=== PATIENT | female | born 1940 | race Caucasian/White ===

== ENCOUNTER 2017-03-13 10:01 | Inpatient (IN) | payer MEDICARE, BC ==
[2017-03-13] MEDS ORDERED: Sodium Chloride 0.9% 1,000 ML IV ONE (10:51)
--- NOTE | 2017-03-13 10:58 | EDM.PDOC ---
ED HPI GENERAL MEDICAL PROBLEM - General Chief Complaint: General Stated Complaint: SICK Time Seen by Provider: 03/13/17 10:53 Source of Information: Reports: Patient, Family History Limitations: Reports: No Limitations - History of Present Illness INITIAL COMMENTS - FREE TEXT/NARRATIVE: 77 yo female presents with c/o n/v/d intermittently x 2 weeks. States that she was recently diagnosed with dementia and started on Aricept. Has been having n/v /d since then and was told to decrease the dose to half. Since decreasing she has not had diarrhea however she has nausea and some vomiting occasionally. Has also had a decrease in appetite stating she has only eating 1 -2 crackers the last 3 days. Denies pain. No other complaints. Was seen on Friday in clinic and had lab work drawn and told her potassium and glucose was elevated. 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) (milk of mag) - Related Data Allergies Allergy/AdvReac Type Severity Reaction Status Date / Time No Known Allergies Allergy Verified 03/13/17 10:19 Home Meds: Home Meds Acetaminophen [Tylenol Extra Strength] 500 mg PO ASDIRECTED 06/10/16 [History] Aspirin [Halfprin] 81 mg PO ONETIME 06/10/16 [History] Simvastatin [Simvastatin] 10 mg PO BEDTIME 06/10/16 [History] Vit A/C/E AC/Znox/Cupric Oxide [Eye Vitamin-Minerals Tablet] 1 tab PO BEDTIME [History] amLODIPine/Valsartan [Amlodipine-Valsartan 10-320 mg] 1 tab PO BEDTIME 06/10/16 [History] Hydrochlorothiazide 25 mg PO DAILY 03/13/17 [History] Past Medical History HEENT History: Reports: Impaired Vision Other HEENT History: wears glasses Cardiovascular History: Reports: High Cholesterol, Hypertension Gastrointestinal History: Reports: None, Hemorrhoids Genitourinary History: Reports: None 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 Musculoskeletal History: Reports: Arthritis Neurological History: Reports: None Psychiatric History: Reports: Dementia Endocrine/Metabolic History: Reports: None Hematologic History: Reports: None Immunologic History: Reports: None Oncologic (Cancer) History: Reports: None Dermatologic History: Reports: None - Infectious Disease History Infectious Disease History: Reports: Chicken Pox, Measles, Rheumatic Fever - Past Surgical History Head Surgeries/Procedures: Reports: None Other GI Surgeries/Procedures: hemmorrhoid surgury Social & Family History - Family History Family Medical History: Noncontributory - Tobacco Use Smoking Status *Q: Former Smoker Years of Tobacco use: 40 Packs/Tins Daily: 2 Used Tobacco, but Quit: Yes Month Tobacco Last Used: ? Second Hand Smoke Exposure: No - Caffeine Use Caffeine Use: Reports: None - Recreational Drug Use Recreational Drug Use: No - Living Situation & Occupation Living situation: Reports: , with Spouse Occupation: Retired ED ROS GENERAL - Review of Systems Review Of Systems: See Below Constitutional: Reports: Malaise, Fatigue, Decreased Appetite Neurological: Reports: Gait Disturbance ED EXAM, GENERAL - Physical Exam Exam: See Below Exam Limited By: No Limitations General Appearance: Alert, WD/WN, No Apparent Distress Eye Exam: Bilateral Eye: EOMI, Normal Inspection, PERRL Ears: Normal External Exam, Normal Canal, Hearing Grossly Normal, Normal TMs Ear Exam: Bilateral Ear: Auricle Normal, Canal Normal, TM normal Nose: Normal Inspection, Normal Mucosa, No Blood Throat/Mouth: Normal Inspection, Normal Lips, Normal Teeth, Normal Gums, Normal Oropharynx, Normal Voice, No Airway Compromise Head: Atraumatic, Normocephalic Neck: Normal Inspection, Supple, Non-Tender, Full Range of Motion Respiratory/Chest: No Respiratory Distress, Lungs Clear, Normal Breath Sounds, No Accessory Muscle Use, Chest Non-Tender Cardiovascular: Normal Peripheral Pulses, Regular Rate, Rhythm, No Edema, No Gallop, No JVD, No Rub, Systolic Murmur GI/Abdominal: Normal Bowel Sounds, Soft, Non-Tender, No Organomegaly, No Distention, No Abnormal Bruit, No Mass Extremities: Normal Inspection, Normal Range of Motion, Non-Tender, Normal Capillary Refill, No Pedal Edema Neurological: Alert, Oriented, CN II-XII Intact, Normal Cognition, Normal Gait, Normal Reflexes, No Motor/Sensory Deficits Skin Exam: Warm, Dry, Intact, Normal Color, No Rash Course - Vital Signs Last Recorded V/S: Last Vital Signs Temp 97.6 F 03/13/17 10:20 Pulse 74 03/13/17 10:20 Resp 18 03/13/17 10:20 BP 144/77 H 03/13/17 10:20 Pulse Ox 99 03/13/17 10:20 - Orders/Labs/Meds Orders: Active Orders 24 hr Category Date Time Status EKG Documentation Completion [RC] STAT Care 03/13/17 10:51 Active Chest 2V [CR] Stat Exams 03/13/17 10:50 Taken Head wo Cont [CT] Urgent Exams 03/13/17 11:50 Taken [facility]IRUS IGM [REF] Stat Lab 03/13/17 11:02 Received Potassium Chloride [KCL 20 MEQ in Water 100 ML] 20 meq Med 03/13/17 12:41 Active Premix Bag 1 bag IV ONETIME Sodium Chloride 0.9% [Saline Flush] Med 03/13/17 10:51 Active 10 ml FLUSH ASDIRECTED PRN Saline Lock Insert [OM.PC] Stat Oth 03/13/17 10:50 Ordered Medication Orders Potassium Chloride 20 meq/ (Premix) 100 mls @ 50 mls/hr IV ONETIME ONE Stop: 03/13/17 14:40 Sodium Chloride (Saline Flush) 10 ml FLUSH ASDIRECTED PRN PRN Reason: Keep Vein Open Last Admin: 03/13/17 11:09 Dose: 10 ml Labs: Laboratory Tests 03/13/17 03/13/17 03/13/17 Range/Units 11:02 11:02 11:02 WBC 4.7 L (5.0-10.0) 10^3/uL RBC 4.72 (4.2-5.4) 10^6/uL Hgb 14.0 (12.0-16.0) g/dL Hct 39.0 (37.0-47.0) % MCV 82.6 (80-100) fL MCH 29.7 (27.0-34.0) pg MCHC 35.9 H (33.0-35.0) g/dL Plt Count 214 (150-450) 10^3/uL Neut % (Auto) 63.0 (42.2-75.2) % Lymph % (Auto) 18.0 L (20.5-50.1) % [place] % (Auto) 18.6 H (2-8) % Eos % (Auto) 0.2 L (1.0-3.0) % Baso % (Auto) 0.2 (0.0-1.0) % Sodium 124 L (135-145) mmol/L Potassium 3.3 L (3.6-5.0) mmol/L Chloride 81 L (101-111) mmol/L Carbon Dioxide 27.0 (21.0-31.0) mmol/L Anion Gap 19.3 BUN 15 (7-18) mg/dL Creatinine 0.8 (0.6-1.3) mg/dL Est Cr Clr Drug Dosing 52.15 mL/min Estimated GFR (MDRD) > 60 Glucose 101 (74-105) mg/dL Calcium 9.7 (8.4-10.2) mg/dl Creatine Kinase 171 (26-174) IU/L Creatine Kinase Index 6.1 H (0-2.4) % CK-MB (CK-2) 10.40 H (0.4-4.7) ng/mL Troponin I < 0.02 (0.00-0.02) ng/ml Urine Color (YELLOW) Urine Appearance (CLEAR) Urine pH (5.0-9.0) Ur Specific [place] (1.005-1.030) Urine Protein (NEGATIVE) Urine Glucose (UA) (NEGATIVE) Urine Ketones (NEGATIVE) Urine Occult Blood (NEGATIVE) Urine Nitrite (NEGATIVE) Urine Bilirubin (NEGATIVE) Urine Urobilinogen (0.2-1.0) mg/dL Ur Leukocyte Esterase (NEGATIVE) Urine RBC /HPF Urine WBC (0-5/HPF) /HPF Ur Epithelial Cells /HPF Amorphous Sediment (0/HPF) /HPF Urine Bacteria (0-FEW/HPF) /HPF Urine Mucus /LPF 03/13/17 Range/Units 11:02 WBC (5.0-10.0) 10^3/uL RBC (4.2-5.4) 10^6/uL Hgb (12.0-16.0) g/dL Hct (37.0-47.0) % MCV (80-100) fL MCH (27.0-34.0) pg MCHC (33.0-35.0) g/dL Plt Count (150-450) 10^3/uL Neut % (Auto) (42.2-75.2) % Lymph % (Auto) (20.5-50.1) % [place] % (Auto) (2-8) % Eos % (Auto) (1.0-3.0) % Baso % (Auto) (0.0-1.0) % Sodium (135-145) mmol/L Potassium (3.6-5.0) mmol/L Chloride (101-111) mmol/L Carbon Dioxide (21.0-31.0) mmol/L Anion Gap BUN (7-18) mg/dL Creatinine (0.6-1.3) mg/dL Est Cr Clr Drug Dosing mL/min Estimated GFR (MDRD) Glucose (74-105) mg/dL Calcium (8.4-10.2) mg/dl Creatine Kinase (26-174) IU/L Creatine Kinase Index (0-2.4) % CK-MB (CK-2) (0.4-4.7) ng/mL Troponin I (0.00-0.02) ng/ml Urine Color Yellow (YELLOW) Urine Appearance Clear (CLEAR) Urine pH 6.0 (5.0-9.0) Ur Specific [place] 1.010 (1.005-1.030) Urine Protein Negative (NEGATIVE) Urine Glucose (UA) Negative (NEGATIVE) Urine Ketones 15 H (NEGATIVE) Urine Occult Blood Negative (NEGATIVE) Urine Nitrite Negative (NEGATIVE) Urine Bilirubin Small H (NEGATIVE) Urine Urobilinogen 0.2 (0.2-1.0) mg/dL Ur Leukocyte Esterase Moderate H (NEGATIVE) Urine RBC 0-5 /HPF Urine WBC 0-5 (0-5/HPF) /HPF Ur Epithelial Cells Moderate H /HPF Amorphous Sediment Few (0/HPF) /HPF Urine Bacteria Few (0-FEW/HPF) /HPF Urine Mucus Many H /LPF Meds: Medications Generic Name Dose Route Start Last Admin Trade Name Freq PRN Reason Stop Dose Admin Potassium Chloride 20 meq/ 100 mls @ 50 mls/hr 03/13/17 12:41 Premix IV 03/13/17 14:40 ONETIME ONE Sodium Chloride 10 ml 03/13/17 10:51 03/13/17 11:09 Saline Flush FLUSH 10 ml ASDIRECTED PRN Administration Keep Vein Open Discontinued Medications Generic Name Dose Route Start Last Admin Trade Name Freq PRN Reason Stop Dose Admin Sodium Chloride 1,000 mls @ 999 mls/min 03/13/17 10:51 03/13/17 11:09 Normal Saline IV 03/13/17 10:52 999 mls/min .BOLUS ONE Administration - Re-Assessments/Exams Free Text/Narrative Re-Assessment/Exam: 03/13/17 13:[address] Bah who agrees to admit for observation Departure - Departure Time of Disposition: 13:01 Disposition: Refer to Observation Condition: Good Clinical Impression: Hypokalemia, Hyponatremia - Discharge Information Forms: ED Department Discharge - My Orders Last 24 Hours: My Active Orders 03/13/17 10:50 Chest 2V [CR] Stat Saline Lock Insert [OM.PC] Stat 03/13/17 10:51 EKG Documentation Completion [RC] STAT Sodium Chloride 0.9% [Saline Flush] 10 ml FLUSH ASDIRECTED PRN 03/13/17 11:02 [facility] [place] [facility] IGM [REF] Stat 03/13/17 11:50 Head wo Cont [CT] Urgent 03/13/17 12:41 Potassium Chloride [KCL 20 MEQ in Water 100 ML] 20 meq Premix Bag 1 bag IV ONETIME - Assessment/Plan Last 24 Hours: My Active Orders 03/13/17 10:50 Chest 2V [CR] Stat Saline Lock Insert [OM.PC] Stat 03/13/17 10:51 EKG Documentation Completion [RC] STAT Sodium Chloride 0.9% [Saline Flush] 10 ml FLUSH ASDIRECTED PRN 03/13/17 11:02 [facility]IRUS IGM [REF] Stat 03/13/17 11:50 Head wo Cont [CT] Urgent 03/13/17 12:41 Potassium Chloride [KCL 20 MEQ in Water 100 ML] 20 meq Premix Bag 1 bag IV ONETIME
[2017-03-13] MEDS: Sodium Chloride 0.9% 10 ML Syringe FLUSH PRN (11:09)
[2017-03-13 11:30] LABS: CHLORIDE,CL 81 mmol/L (101-111); SODIUM,NA 124 mmol/L (135-145)
[2017-03-13] MEDS ORDERED: Potassium Chloride 20 MEQ in Premix Bag 1 BAG IV ONE (12:41)
[2017-03-13] MEDS ORDERED: Furosemide 20 MG/2 ML VIAL IVPUSH ONE (16:33)
[2017-03-13] MEDS ORDERED: Acetaminophen 325 MG Tab PO PRN (16:34)
[2017-03-13] MEDS ORDERED: Bisacodyl 10 MG Supp RECTAL PRN (16:34)
[2017-03-13] MEDS ORDERED: Acetaminophen 500 MG Tab PO PRN (16:46)
[2017-03-14] MEDS ORDERED: Aluminum Hydroxide/Magnesium Hydroxide/Simethicone Susp 30 ML Cup PO ONE (01:46)
[2017-03-14] MEDS: amLODIPine 5 MG Tab PO SCH (09:49)
[2017-03-14] MEDS: Enoxaparin 40 MG/0.4 ML Syringe SUBCUT SCH (09:49)
[2017-03-14] MEDS: Aspirin 81 MG Tab.EC PO SCH (09:49)
[2017-03-14] MEDS ORDERED: Potassium Chloride 10 MEQ Tab.ER PO ONE (18:27)
[2017-03-14] MEDS: Sodium Chloride 0.9% 10 ML Syringe FLUSH PRN (20:25)
--- NOTE | 2017-03-14 23:07 | PN ---
DATE: 03/14/2017 SUBJECTIVE: Mrs. Chaney is a 77-year-old lady, who was admitted yesterday with a history of several days of vomiting and diarrhea. On evaluation, she was found to be hyponatremic and hypokalemic. She was given replacement potassium in the ER. For the low sodium, we fluid restricted her, gave her a small dose of IV Lasix and provider her with salted food. This morning, her sodium has risen to 131 and potassium is 3.5. She was given 20 mEq of potassium chloride today, and she received it again in the morning. We will continue the present management and repeat sodium and potassium tomorrow morning. Review of her clinical data shows she is otherwise doing fine. She is feeling and looking much better. She is taking in fluids. She is voiding and moving her bowels. She is tolerating her diet. Vital signs have remained stable. She has remained afebrile. PHYSICAL EXAMINATION: VITAL SIGNS: Today on exam, blood pressure 111/67, pulse 61, respiratory rate 20, oxygen saturation 98% on room air, and she is afebrile. HEENT: Unremarkable. ENT was clear. CHEST: Clear. HEART: Regular. ABDOMEN: Benign. NEUROLOGIC: She was intact. Sodium and potassium have risen. We will give her some additional oral potassium today, but overall, she is doing well with fluid restriction and stopping her previous medications which may be contributing to the problem. If she does well overnight, she will be discharged to home. [facility] /[id number]
--- NOTE | 2017-03-15 00:28 | HP ---
REASON FOR ADMISSION: Dehydration with associated hyponatremia and hypokalemia. HISTORY OF PRESENT ILLNESS: Mrs. Chaney is a 77-year-old lady, who comes in from home. She was seen and evaluated in the emergency department and referred for admission. She stated that she has been ill for several days. She was actually seen at the clinic on March [address] Magallanes. At that visit, she complained of vomiting, which had started 3 days prior to the visit. There was a story of homemade soup. Her ate the same soup, but did not become ill. She herself went onto to have vomiting and diarrhea, so it is unclear if the soup really is the problem. She had no fever or chills. No blood by mouth or rectum. No bloody stools. She came in to be evaluated. At that visit, she had stable vital signs. Her blood pressure was 142/70, pulse was 60. Her abdomen was soft and nontender with active bowel sounds. She was placed on Zantac to help with the nausea. She was encouraged to take in adequate hydration and monitor her bowel movements. If she had any further problems, she was asked to come back and be re-evaluated. Mrs. Chaney also states there have been some recent medication changes, which she feels were contributing factors to her illness. She was recently started on Aricept, and she attributes the nausea, vomiting, and diarrhea to the Aricept. These actually can be common side effects of the drug. She has also been on simvastatin, did not like the way she felt on it. She stopped it on her own, and her primary care physician was upset with that, she said. In the emergency room, her vital signs were stable and she was afebrile. Lab work revealed low sodium and low potassium. On further questioning, she stated that she had made sure to drink plenty of free water to remain hydrated, and this may also be a contributing factor to the hyponatremia. PAST MEDICAL HISTORY: Osteoarthritis, dyslipidemia, hypertension, GERD, impaired fasting glucose. She has had a compression fracture. She has had shingles on the shoulder and back. PAST SURGICAL HISTORY: She had a hemorrhoidectomy many years ago following her pregnancies but no other surgery. SOCIAL HISTORY: She has been for 60 years and points out she was with her for 3 years before that, for a total of 63 years. Her mother went to live at [facility]. She herself went to [facility] trainings that she could be near her mother on a daily basis and was able to work there, where her mother lived for 10 years. At the end of her life, her mother went into the jail for the last 3 months. She has 4 sons, 6 grandchildren, and about 15 great grandchildren. She and her farmed near [place]. She grew up [place] in the [facility]. She states that she had rheumatic fever as a child when she was in the second grade and spent 6 months from July to December in bed, which was common at that time. FAMILY HISTORY: Mother at 97 with a history of hypertension. Father at age 68. She had 4 sisters. Two of them had leukemia, 1 sister is . She currently does not smoke cigarettes and has rare social alcohol. REVIEW OF SYSTEMS: She has never had a heart attack or a stroke. No recent vision or hearing changes. She has upper and lower dentures. No swallowing difficulties. No chest pain. No cough or shortness of breath. No orthopnea. No abdominal pain. No recent falls or injuries. She feels that she has had some slight memory issues lately, but nothing major. Remainder of ROS as above. Labs were performed in clinic about 10 days ago. CBC was unremarkable. Comprehensive panel showed sodium to be 134 at that time, potassium 4.8. TSH was normal. Urinalysis was unremarkable. Vitamin B12 and folate were in the normal range. These were probably done as part of her dementia workup. CURRENT MEDICATIONS: 1. Amlodipine/valsartan 10/320 one tablets daily. 2. Vitamin with minerals 1 tablet daily. 3. Hydrochlorothiazide 25 mg daily. 4. Aspirin EC 81 mg daily. 5. Tylenol extra-strength 500 mg every 6 hours p.r.n. 6. Biotin 5000 mcg daily. NOTE: Stopped Aricept and Simvastatin on her own. ALLERGIES: No known allergies. PHYSICAL EXAMINATION: GENERAL: She is a pleasant elderly lady. She was not confused and participated actively throughout the visit. Her memory for family and social issues appeared to be quite intact. VITAL SIGNS: Blood pressure 144/64 on the left, 139/64 on the right, pulse 62, respiratory rate 20, oxygen saturation 100% on room air. She was afebrile. Height 5 feet 4 inches. Weight 150 pounds 5 ounces. HEENT: Unremarkable. ENT was clear. NECK: No JVDs or bruits. CHEST: Showed clear bilateral breath sounds. HEART: Showed regular rate and rhythm. ABDOMEN: Soft and benign. EXTREMITIES: Showed no edema. NEUROLOGIC: She was intact. LABORATORY DATA: CBC showed normal white count and platelets. Hemoglobin and hematocrit were 14 and 39. Chemistry showed a sodium of 124, potassium 3.3, BUN and creatinine 15 and 0.8 with a GFR of more than 60. Troponin was negative at 0.02. Urinalysis showed a clear yellow urine with a specific gravity of 1.010 and unremarkable microscopic exam. Influenza A/B screening was negagive. She was tested for West Nile virus. Results are pending. (Note: Results for West Nile were negative.) IMPRESSION: A 77-year-old lady who gives a story of several days of nausea, vomiting, diarrhea, as well as institution of new medications which may or may not have contributed to present situation. She has hyponatremia and hypokalemia. She will be admitted for further management. PLAN: In the emergency room, she had been given 1 L of fluids. She does not appear to be clinically dehydrated. On arrival on the floor, the IV fluids were discontinued, and she was given 20 mg of IV Lasix. She was placed on a fluid restriction of 1500 mL daily, and she was encouraged to have some salted food. We did provide her with a small bag of potato chips, and she ate these and enjoyed them. Her usual medications will be continued. We will not continue hydrochlorothiazide as this is probably contributing to the electrolyte abnormalities. We also will not continue the Aricept as she has stopped it and does not wish to take it any longer. She also has stopped taking her simvastatin as well. We will continue this management overnight, and we will repeat the lab work in the morning, rechecking sodium potassium as well as magnesium. No other changes made in her care today. CONDITION AT TIME OF ADMISSION: Stable. CODE STATUS: Full code. [facility] /[id number] [facility]
--- NOTE | 2017-03-15 08:59 | PCM.DCSUM1 ---
Discharge Summary - Hospital Course Free Text/Narrative:: This is 77 yo female admitted with with c/o n/v/d intermittently x 2 weeks. States that she was recently diagnosed with dementia and started on Aricept. Has been having n/v/d since the start of Aricept, she was told to decrease the dose to half. Since decreasing she has not had diarrhea however she continued to have nausea and some vomiting occasionally, she also had decrease in appetite stating she has only eating 1 -2 crackers the last 3 days. In ED she was noted to have low sodium ( 124 meq/L) and Low potassium ( 3.3 mmol/L). She was admitted,Stopped HCTZ and allowed to eat high salt content foods. Her sodium today on discharge was 134 meq/L. Will not start her on HCTZ. She will follow with PMD in in a week. She is requesting for a walker and I advised to talk to PMD and gets evaluated for walker. HPI Initial Comments: THis is a 77 Y/O F admitted with Hyponatremia and Hypokalemia. The pt has parst medical history of Hypertension, Osteoarthritis, GERD and Hyperlipidemia. Brief History: This is 77 yo female admitted with with c/o n/v/d intermittently x 2 weeks. States that she was recently diagnosed with dementia and started on Aricept. Has been having n/v/d since the start of Aricept, she was told to decrease the dose to half. Since decreasing she has not had diarrhea however she continued to have nausea and some vomiting occasionally, she also had decrease in appetite stating she has only eating 1 -2 crackers the last 3 days. In ED she was noted to have low sodium ( 124 meq/L) and Low potassium ( 3.3 mmol/L). She was admitted,Stopped HCTZ and allowed to eat high salt content foods. Her sodium today on discharge was 134 meq/L. Will not start her on HCTZ. She will follow with PMD in in a week. She is requesting for a walker and I advised to talk to PMD and gets evaluated for walker. - Discharge Data Discharge Date: 03/15/17 Discharge Disposition: Home, Self-Care 01 Condition: Good - Discharge Diagnosis/Problem(s) (1) Hypokalemia SNOMED Code(s): 25068013 ICD Code: E87.6 - HYPOKALEMIA Status: Acute Current Visit: Yes (2) Hyponatremia SNOMED Code(s): 46595945 ICD Code: E87.1 - HYPO-OSMOLALITY AND HYPONATREMIA Status: Acute Current Visit: Yes - Patient Instructions Diet: Regular Diet as Tolerated Activity: As Tolerated Showering/Bathing: May Shower Notify Provider of: Nausea and/or Vomiting Other/Special Instructions: Pt is advised to eat egular diet and use salt in cooking. follow with PMD in a week. Will stop HCTZ as it is associated with Hyponatremia. She is requesting for Walker, Advise her to discuss with PMD and she needs evaluation for walker and that can be done in the clinic. Advise to check Blood pressure regularly. - Discharge Plan Home Medications: Home Meds Acetaminophen [Tylenol Extra Strength] 500 mg PO Q6H PRN 06/10/16 [History] Aspirin [Halfprin] 81 mg PO DAILY 06/10/16 [History] Vit A/C/E AC/Znox/Cupric Oxide [Eye Vitamin-Minerals Tablet] 1 tab PO DAILY [History] amLODIPine/Valsartan [Amlodipine-Valsartan 10-320 mg] 1 tab PO BEDTIME 06/10/16 [History] Biotin 5,000 mcg PO DAILY 03/13/17 [History] Patient Handouts: Hyponatremia, [id number], Hypokalemia, Constipation, Adult , [id number] Forms: ED Department Discharge Referrals: PCP,Unobtain [Ordering Only Provider] - - Discharge Summary/Plan Comment DC Time >30 min.: Yes Discharge Summary/Plan Comment: This is 77 yo female admitted with with c/o n/v/d intermittently x 2 weeks. States that she was recently diagnosed with dementia and started on Aricept. Has been having n/v/d since the start of Aricept, she was told to decrease the dose to half. Since decreasing she has not had diarrhea however she continued to have nausea and some vomiting occasionally, she also had decrease in appetite stating she has only eating 1 -2 crackers the last 3 days. In ED she was noted to have low sodium ( 124 meq/L) and Low potassium ( 3.3 mmol/L). She was admitted,Stopped HCTZ and allowed to eat high salt content foods. Her sodium today on discharge was 134 meq/L. Will not start her on HCTZ. She will follow with PMD in in a week. She is requesting for a walker and I advised to talk to PMD and gets evaluated for walker. Impression and Plan: 1. Hyponatremia: This is likely from Nausea and also Poor oral Intake and the presence of HCTZ -Will stio HCTZ ( was at 25 mg daily) -Advise to eat regular meal and use salt in cooking ( she does not use salt in cooking) -Her sodium is progressively improving and her sodium today was at 134 meq/L 2. Hypertension: BP is acceptable will continue Amlodipine /Valsartna ( 10/320 mg) 1 tab daily 3. Nausea/Vomiting: Resolved 4. Disposition: She will be going home today and will have follow up with PMD in a week - General Info Date of Service: 03/15/17 Admission Dx/Problem (Free Text: The pt was admitted with Nausea/Vomiting and Diarrhea. She was noted also to have Hyponatremia and Hypokalemia Subjective Update: She is doing well, appetite is good. She is ambulating to restroom without any assistance. She does not have any more Nausea/Vomiting or diarrhea and tolerating diet. Functional Status: Reports: Pain Controlled, Tolerating Diet, Ambulating, Urinating - Review of Systems General: Reports: Weakness (mild), Appetite (good). Denies: Fever, Chills HEENT: Denies: Headaches, Sinus Congestion, Sore Throat, Visual Changes Pulmonary: Denies: Shortness of Breath, Pleuritic Chest Pain, Cough, Sputum, Wheezing Cardiovascular: Denies: Chest Pain, Dyspnea on Exertion, Edema, Lightheadedness Gastrointestinal: Reports: Constipation. Denies: Abdominal Pain, Difficulty Swallowing, Nausea, Vomiting Genitourinary: Denies: Dysuria, Frequency, Burning, Urgency, Flank Pain Musculoskeletal: Denies: Neck Pain, Shoulder Pain, Hand Pain, Foot Pain, Joint Pain Skin: Denies: Cyanosis, Bruising, Pruritis, Rash Neurological: Denies: Confusion, Dizziness, Tingling, Tremors Psychiatric: Denies: Confusion, Anxiety - Patient Data Vitals - Most Recent: Last Vital Signs Temp 36.1 C 03/15/17 08:36 Pulse 61 03/15/17 08:36 Resp 20 03/15/17 08:36 BP 129/73 03/15/17 08:36 Pulse Ox 98 03/15/17 08:36 Weight - Most Recent: 68.175 kg I&O - Last 24 hours: Intake & Output 03/14/17 03/15/17 03/15/17 22:59 06:59 14:59 Intake Total 700 300 Output Total 400 400 Balance 300 -100 Lab Results - Last 24 hrs: Laboratory Results - last 24 hr 03/15/17 Range/Units 06:20 Sodium 134 L (135-145) mmol/L Potassium 4.4 (3.6-5.0) mmol/L Med Orders - Current: Current Medications Acetaminophen (Tylenol) 650 mg PO Q4H PRN PRN Reason: Pain (mild 1-3 )/fever Amlodipine Besylate (Norvasc) 10 mg PO DAILY [facility] Last Admin: 03/14/17 09:49 Dose: 10 mg Aspirin (Halfprin) 81 mg PO DAILY [facility] Last Admin: 03/14/17 09:49 Dose: 81 mg Bisacodyl (Dulcolax) 10 mg RECTAL DAILY PRN PRN Reason: Constipation Enoxaparin Sodium (Lovenox) 40 mg SUBCUT DAILY [facility] Last Admin: 03/14/17 09:49 Dose: 40 mg Potassium Chloride (Klor-Con 10) 20 meq PO WITHBREAKFAST [facility] Sodium Chloride (Saline Flush) 10 ml FLUSH ASDIRECTED PRN PRN Reason: Keep Vein Open Last Admin: 03/14/17 20:25 Dose: 10 ml Valsartan (Diovan) 320 mg PO DAILY [facility] Last Admin: 03/14/17 09:49 Dose: 320 mg Discontinued Medications Acetaminophen (Tylenol Extra Strength) 500 mg PO Q6H PRN PRN Reason: Pain Al Hydroxide/Mg Hydroxide (Mag-Al Plus) 30 ml PO ONETIME ONE Stop: 03/14/17 01:47 Last Admin: 03/14/17 02:00 Dose: 30 ml Furosemide (Lasix) 20 mg IVPUSH ONETIME ONE Stop: 03/13/17 16:34 Last Admin: 03/13/17 18:11 Dose: 20 mg Sodium Chloride (Normal Saline) 1,000 mls @ 999 mls/min IV .BOLUS ONE Stop: 03/13/17 10:52 Last Admin: 03/13/17 11:09 Dose: 999 mls/min Potassium Chloride 20 meq/ (Premix) 100 mls @ 50 mls/hr IV ONETIME ONE Stop: 03/13/17 14:40 Last Admin: 03/13/17 13:05 Dose: 50 mls/hr Potassium Chloride (Klor-Con 10) 20 meq PO ONETIME ONE Stop: 03/14/17 18:28 Last Admin: 03/14/17 19:20 Dose: 20 meq - Exam Quality Assessment: Reports: DVT Prophylaxis. Denies: Supplemental Oxygen, Urine Catheter General: Reports: Alert, Oriented, Cooperative, No Acute Distress HEENT: Reports: Pupils Equal, EOMI, Mucous Membr. Moist/[place] Neck: Reports: Supple, No JVD. Denies: No Thyromegaly, Lymphadenopathy Lungs: Reports: Clear to Auscultation, Normal Respiratory Effort. Denies: Crackles, Wheezing Cardiovascular: Reports: Regular Rate, Regular Rhythm, Murmurs GI/Abdominal Exam: Normal Bowel Sounds, Soft, Non-Tender, No Distention (Female) Exam: Deferred Rectal (Female) Exam: Deferred Back Exam: Reports: Normal Inspection, Full Range of Motion Extremities: Normal Inspection, Non-Tender, No Pedal Edema Skin: Reports: Warm, Dry, Intact Neurological: Reports: No New Focal Deficit Psy/Mental Status: Reports: Alert, Normal Affect, Normal Mood *Q Meaningful Use (DIS) - VTE *Q VTE Criteria *Q: - Stroke *Q Stroke Criteria *Q: - AMI *Q AMI Criteria *Q:
[2017-03-15] MEDS ORDERED: Potassium Chloride 10 MEQ Tab.ER PO SCH (09:00)
[2017-03-15] MEDS: Aspirin 81 MG Tab.EC PO SCH (09:48)
[2017-03-15] MEDS: amLODIPine 5 MG Tab PO SCH (09:48)
[2017-03-15] MEDS: Enoxaparin 40 MG/0.4 ML Syringe SUBCUT SCH (09:49)
[2017-03-15 09:51] VITALS: BP 129/67
--- NOTE | 2017-03-18 07:20 | EKG ---
03/13/2017- ALDO TORRES - This 12-lead EKG, shows normal sinus rhythm with a ventricular rate of 61. Mild baseline artifact in the limb leads. First-degree AV block. No acute ST- segment or T-wave changes. Q-waves seen in inferior leads suggesting possible previous infarction, age indeterminate. [facility] /[id number]
== END 2017-03-15 11:15 | disposition home or self-care (01) | DRG 641 ==
LOC: DL.ED 10:01 → INTOOBSV 13:02 → DL.MS 13:02 → OBSVTOIN 16:34
PROVIDERS: ADMIT Internal Medicine; ATTEND Internal Medicine
DX: E87.1 Hypo-osmolality and hyponatremia (principal); E87.6 Hypokalemia; E86.0 Dehydration; M19.90 Unspecified osteoarthritis, unspecified site; E78.5 Hyperlipidemia, unspecified; I10 Essential (primary) hypertension; K21.9 Gastro-esophageal reflux disease without esophagitis; R73.01 Impaired fasting glucose; Z79.82 Long term (current) use of aspirin; Z79.2 Long term (current) use of antibiotics; Z79.899 Other long term (current) drug therapy
CPT/HCPCS: 36415; 70450; 71020; 80048; 81001; 82550; 82553; 84484; 85025; 86788; 87804 ×2; 93005; 93010; 96361; 96365; 96366; 99285; J3480; J7030; J7050; 83735; 84132; 84295; 99284; A9270-GY; J1650; J1940

== ENCOUNTER 2021-01-24 14:08 | Emergency (ER) | payer MEDICARE, BC ==
[2021-01-24 14:22] VITALS: BP 136/71; PULSE 86
--- NOTE | 2021-01-24 16:33 | EDM.PDOC ---
ED HPI GENERAL MEDICAL PROBLEM - General Chief Complaint: General Stated Complaint: FELL Time Seen by Provider: 01/24/21 16:00 Source of Information: Reports: Patient History Limitations: Reports: No Limitations - History of Present Illness INITIAL COMMENTS - FREE TEXT/NARRATIVE: This 81 yo female patient was brought to the ED by her son from [facility] due to dizziness and a fall earlier today. The patient's son reports the patient was getting up earlier today when she became dizzy and fell to the ground. The patient reports no pain upon presentation in the ED. The patient was scheduled to be seen by Dr. Potter today, but after the fall she was advised to come directly to the ED. The patient has had several previous similar episodes. Onset: Today Duration: Other Quality: Reports: Other Severity: Mild Improves with: Reports: None Worsens with: Reports: None Associated Symptoms: Reports: Syncope - Related Data Allergies Allergy/AdvReac Type Severity Reaction Status Date / Time No Known Allergies Allergy Verified 01/24/21 14:29 Home Meds: Home Meds Acetaminophen [Tylenol Extra Strength] 500 mg PO Q6H PRN 06/10/16 [History] Amlodipine Besylate/Valsartan [Amlodipine-Valsartan 10-320 mg] 1 tab PO BEDTIME 06/10/16 [History] Aspirin [Halfprin] 81 mg PO DAILY 06/10/16 [History] Vit A/C/E AC/Znox/Cupric Oxide [Eye Vitamin-Minerals Tablet] 1 tab PO DAILY 06/10/16 [History] Biotin 5,000 mcg PO DAILY 03/13/17 [History] Past Medical History HEENT History: Reports: Impaired Vision Other HEENT History: wears glasses Cardiovascular History: Reports: High Cholesterol, Hypertension Respiratory History: Reports: None Gastrointestinal History: Reports: Hemorrhoids Genitourinary History: Reports: None [employer] History: Reports: Musculoskeletal History: Reports: Arthritis Neurological History: Reports: Other (See Below) Other Neuro History: compression fractures Psychiatric History: Reports: Dementia Endocrine/Metabolic History: Reports: None Hematologic History: Reports: None Immunologic History: Reports: None Oncologic (Cancer) History: Reports: None Dermatologic History: Reports: None - Infectious Disease History Infectious Disease History: Reports: Chicken Pox - Past Surgical History Head Surgeries/Procedures: Reports: None HEENT Surgical History: Reports: Adenoidectomy, Tonsillectomy Cardiovascular Surgical History: Reports: None GI Surgical History: Reports: Colonoscopy Other GI Surgeries/Procedures: hemmorrhoid surgury Neurological Surgical History: Reports: None Musculoskeletal Surgical History: Reports: None Oncologic Surgical History: Reports: None Social & Family History - Family History Family Medical History: No Pertinent Family History - Tobacco Use Tobacco Use Status *Q: Former Tobacco User Years of Tobacco use: 20 Packs/Tins Daily: 0 Used Tobacco, but Quit: Yes Month/Year Tobacco Last Used: - Caffeine Use Caffeine Use: Reports: Coffee - Recreational Drug Use Recreational Drug Use: No - Living Situation & Occupation Living situation: Reports: , with Spouse Occupation: Retired ED ROS GENERAL - Review of Systems Review Of Systems: Comprehensive ROS is negative, except as noted in HPI. ED EXAM, GENERAL - Physical Exam Exam: See Below Exam Limited By: No Limitations General Appearance: Alert, WD/WN, Mild Distress Eye Exam: Bilateral Eye: EOMI, Normal Inspection, PERRL Ears: Normal External Exam, Normal Canal, Hearing Grossly Normal, Normal TMs Nose: Normal Inspection, Normal Mucosa, No Blood Throat/Mouth: Normal Inspection, Normal Lips, Normal Teeth, Normal Gums, Normal Oropharynx, Normal Voice, No Airway Compromise Head: Atraumatic, Normocephalic Neck: Normal Inspection, Supple, Non-Tender, Full Range of Motion Respiratory/Chest: No Respiratory Distress, Lungs Clear, Normal Breath Sounds, No Accessory Muscle Use, Chest Non-Tender Cardiovascular: Normal Peripheral Pulses, Regular Rate, Rhythm, No Edema, No Gallop, No JVD, No Murmur, No Rub GI/Abdominal: Normal Bowel Sounds, Soft, Non-Tender, No Organomegaly, No Distention, No Abnormal Bruit, No Mass (Female) Exam: Deferred Rectal (Female) Exam: Deferred Back Exam: Normal Inspection, Full Range of Motion, NT Extremities: Leg Pain (Right hip tenderness with palpation) Neurological: Alert, Oriented, Other (Unstable gait) Psychiatric: Normal Affect, Normal Mood Skin Exam: Warm, Dry, Intact, Normal Color, No Rash Lymphatic: No Adenopathy #1 Interpretation EKG Date: 01/24/21 Time: 16:28 Rhythm: NSR Rate (Beats/Min): 68 (Prolonged NC) [place]a: Normal P-Wave: Present QRS: Normal ST-T: Normal QT: Prolonged Comparison: No Change Course - Vital Signs Last Recorded V/S: Last Vital Signs Temp 97.3 F 01/24/21 14:21 Pulse 86 01/24/21 14:21 Resp 18 01/24/21 14:21 BP 136/71 01/24/21 14:21 Pulse Ox 97 01/24/21 14:21 - Orders/Labs/Meds Orders: Active Orders 24 hr Category Date Time Status EKG Documentation Completion [RC] STAT Care 01/24/21 16:08 Ordered UA RFX GRAHAM AND CULT IF INDIC [URIN] Urgent Lab 01/24/21 16:08 Ordered Labs: Laboratory Tests 01/24/21 01/24/21 Range/Units 16:17 16:17 WBC 10.1 H (5.0-10.0) 10^3/uL RBC 4.42 (4.2-5.4) 10^6/uL Hgb 13.0 (12.0-16.0) g/dL Hct 39.6 (37.0-47.0) % MCV 89.6 D (80-100) fL MCH 29.4 (27.0-34.0) pg MCHC 32.8 L (33.0-35.0) g/dL Plt Count 200 (150-450) 10^3/uL Neut % (Auto) 82.0 H (42.2-75.2) % Lymph % (Auto) 9.3 L (20.5-50.1) % [place] % (Auto) 8.3 H (2-8) % Eos % (Auto) 0.3 L (1.0-3.0) % Baso % (Auto) 0.1 (0.0-1.0) % Sodium 143 (136-145) mmol/L Potassium 4.1 (3.5-5.1) mmol/L Chloride 103 (98-107) mmol/L Carbon Dioxide 28 (21-32) mmol/L Anion Gap 16.1 H (7-13) mEq/L BUN 18 (7-18) mg/dL Creatinine 0.86 (0.55-1.02) mg/dL Est Cr Clr Drug Dosing 43.55 mL/min Estimated GFR (MDRD) > 60 BUN/Creatinine Ratio 20.9 (No establ ref range) Glucose 120 H (70-99) mg/dL Calcium 8.9 (8.5-10.1) mg/dL Total Bilirubin 0.6 (0.2-1.0) mg/dL AST 29 (15-37) U/L ALT 32 (14-59) U/L Alkaline Phosphatase 73 (46-116) U/L Troponin I High Sens 15 (<=51) pg/mL Total Protein 7.8 (6.4-8.2) g/dL Albumin 4.2 (3.4-5.0) g/dL Globulin 3.6 Albumin/Globulin Ratio 1.2 - Re-Assessments/Exams Free Text/Narrative Re-Assessment/Exam: 01/24/21 16:53 Discussed the x-ray results with Dr. Lopez. Dr. Lopez recommended a CT for additional views of the hip. Departure - Departure Time of Disposition: 17:48 Disposition: Home, Self-Care 01 Condition: Fair Clinical Impression: Syncope and collapse - Discharge Information *PRESCRIPTION DRUG MONITORING PROGRAM REVIEWED*: Not Applicable *COPY OF PRESCRIPTION DRUG MONITORING REPORT IN PATIENT ELLIOT: Not Applicable Instructions: Syncope, [id number] Forms: ED Department Discharge Care Plan Goals: The patient and her son were advised of the examination, lab, EKG, x-ray and CT results during the visit. The patient was encouraged to stand for several seconds after she gets up from a seated or lying position. The patient was also encouraged to use her walker for support. The patient was advised to follow-up with her primary care facility for continued evaluation and further management. If the patient has any additional symptoms or concerns, the patient should either return to the emergency department or visit her primary care facility. Sepsis Event Note (ED) - Evaluation Sepsis Screening Result: No Definite Risk - Focused Exam Vital Signs: Vital Signs Temp Pulse Resp BP Pulse Ox 01/24/21 14:21 97.3 F 86 18 136/71 97 - My Orders Last 24 Hours: My Active Orders 01/24/21 16:08 EKG Documentation Completion [RC] STAT UA RFX GRAHAM AND CULT IF INDIC [URIN] Urgent - Assessment/Plan Last 24 Hours: My Active Orders 01/24/21 16:08 EKG Documentation Completion [RC] STAT UA RFX GRAHAM AND CULT IF INDIC [URIN] Urgent
[2021-01-24 16:47] LABS: ANION GAP 16.1 mEq/L (7-13); CHLORIDE,CL 103 mmol/L (98-107); SODIUM,NA 143 mmol/L (136-145)
--- NOTE | 2021-01-24 16:51 | CR ---
EXAMINATION: Hip Min 3V w Pelvis Rt SEX: Female AGE: 81 years CLINICAL HISTORY: 81-year-old female syncopal episode and right hip pain (unable to bear weight since yesterday) Interpretation: Generalized osteopenia consistent with age and gender. Asymmetric sclerosis right SI joint. Symmetric spacing normal-appearing SI and hip joints. Note: Subtle lucent line through the proximal right femoral neck (1 view). Suggest unenhanced CT scan may be helpful. No sign of other pelvic or either hip fracture/dislocation. No foreign bodies.
--- NOTE | 2021-01-24 16:53 | CR ---
EXAMINATION: Chest 1V Frontal SEX: Female AGE: 81 years CLINICAL HISTORY: 81-year-old female with syncope and fall. Interpretation: External potline monitor leads. Normal cardiac silhouette (size and configuration). No pulmonary vascular congestion, cephalization of flow, alveolar edema or dependent pleural effusion. No lung mass or hilar lymphadenopathy. No alveolar consolidation, air bronchograms, atelectasis/collapse, or peripheral "groundglass" interstitial lung densities. No pneumothorax or pneumomediastinum. Normal midline tracheal bronchial airway.
--- NOTE | 2021-01-24 17:29 | CT ---
PROCEDURE INFORMATION: Exam: CT Right Lower Extremity Without Contrast, Hip Exam date and time: 01/24/2021 4:57 PM Age: 81 years old Clinical indication: Injury or trauma; Fall; Blunt trauma; Hip; Right; Additional info: Ground level fall TECHNIQUE: Imaging protocol: CT of the Right lower extremity without contrast was performed. Exam focused on the hip. Radiation optimization: All CT scans at this facility use at least one of these dose optimization techniques: automated exposure control; mA and/or kV adjustment per patient size (includes targeted exams where dose is matched to clinical indication); or iterative reconstruction. COMPARISON: CR Hip Min 2V or 3V w Pelvis Rt 01/24/2021 4:23 PM FINDINGS: Bones/joints: No evidence of right hip fracture. No right hemipelvis fracture. No sacrum or coccyx fracture. Lower lumbar spine degenerative facet disease. Soft tissues: Small fat containing umbilical hernia. No localized seroma or hematoma. Reproductive: Midline uterus. IMPRESSION: No right hip fracture.
== END 2021-01-24 18:10 | disposition home or self-care (01) ==
LOC: DL.ED 14:08
DX: R55 Syncope and collapse (principal); I10 Essential (primary) hypertension; M19.90 Unspecified osteoarthritis, unspecified site; F03.90 Unspecified dementia, unspecified severity, without behavioral disturbance, psychotic disturbance, mood disturbance, and anxiety; Z87.891 Personal history of nicotine dependence; Z79.82 Long term (current) use of aspirin; Z79.899 Other long term (current) drug therapy
CPT/HCPCS: 36415; 71045; 73700-RT; 80053; 84484; 85025; 93005; 93010; 99284; 99284-25

== ENCOUNTER 2021-02-01 06:52 | Emergency (ER) | payer MEDICARE, BC ==
[2021-02-01 07:02] VITALS: BP 131/55; PULSE 68
--- NOTE | 2021-02-01 07:37 | EDM.PDOC ---
ED HPI GENERAL MEDICAL PROBLEM - General Chief Complaint: Back Pain or Injury Time Seen by Provider: 02/01/21 07:10 Source of Information: Reports: Patient, Family (Son), RN, RN Notes Reviewed History Limitations: Reports: Other (History of dementia) - History of Present Illness INITIAL COMMENTS - FREE TEXT/NARRATIVE: Marychuy is an 81 y/o female with a history of dementia who presents to the ED via personal vehicle with complaints of low back pain. The patient reports she sustained a fall about one week prior for which she was evaluated by her PCP. She denies loss of consciousness or striking her head during this fall. The patient states her pain improves with acetaminophen and ice packs. She notes her pain is the worst in the morning, or if she sits for too long of a period, and improves with mobilization. She denies radiation of pain. She denies loss of motor or sensory function to her lower extremities. She denies saddle paraesthesia, inability to void, or incontinence of bowel/bladder. - Related Data Allergies Allergy/AdvReac Type Severity Reaction Status Date / Time No Known Allergies Allergy Verified 01/24/21 14:29 Home Meds: Home Meds Acetaminophen [Tylenol Extra Strength] 500 mg PO Q6H PRN 06/10/16 [History] Amlodipine Besylate/Valsartan [Amlodipine-Valsartan 10-320 mg] 1 tab PO BEDTIME 06/10/16 [History] Aspirin [Halfprin] 81 mg PO DAILY 06/10/16 [History] Vit A/C/E AC/Znox/Cupric Oxide [Eye Vitamin-Minerals Tablet] 1 tab PO DAILY 06/10/16 [History] Biotin 5,000 mcg PO DAILY 03/13/17 [History] Past Medical History HEENT History: Reports: Impaired Vision Other HEENT History: wears glasses Cardiovascular History: Reports: High Cholesterol, Hypertension Respiratory History: Reports: None Gastrointestinal History: Reports: Hemorrhoids Genitourinary History: Reports: None MANAGER PROPOSAL History: Reports: Musculoskeletal History: Reports: Arthritis Neurological History: Reports: Other (See Below) Other Neuro History: compression fractures Psychiatric History: Reports: Dementia Endocrine/Metabolic History: Reports: None Hematologic History: Reports: None Immunologic History: Reports: None Oncologic (Cancer) History: Reports: None Dermatologic History: Reports: None - Infectious Disease History Infectious Disease History: Reports: Chicken Pox - Past Surgical History Head Surgeries/Procedures: Reports: None HEENT Surgical History: Reports: Adenoidectomy, Tonsillectomy Cardiovascular Surgical History: Reports: None GI Surgical History: Reports: Colonoscopy Other GI Surgeries/Procedures: hemmorrhoid surgury Neurological Surgical History: Reports: None Musculoskeletal Surgical History: Reports: None Oncologic Surgical History: Reports: None Social & Family History - Family History Family Medical History: No Pertinent Family History - Tobacco Use Tobacco Use Status *Q: Never Tobacco User Second Hand Smoke Exposure: No - Caffeine Use Caffeine Use: Reports: Coffee - Recreational Drug Use Recreational Drug Use: No - Living Situation & Occupation Living situation: Reports: , with Spouse Occupation: Retired ED ROS GENERAL - Review of Systems Review Of Systems: Comprehensive ROS is negative, except as noted in HPI. ED EXAM,LOWER BACK PAIN/INJURY - Physical Exam Exam: See Below Exam Limited By: No Limitations General Appearance: Alert, No Apparent Distress Eye Exam: Bilateral Eye: EOMI, Normal Inspection, PERRL (3mm) Ears: Normal External Exam, Hearing Grossly Normal Nose: Normal Inspection, Normal Mucosa, No Blood Throat/Mouth: Normal Inspection, Normal Oropharynx, Normal Voice, No Airway Compromise Head: Atraumatic, Normocephalic Neck: Normal Inspection, Supple, Non-Tender, Full Range of Motion (kimb) Respiratory/Chest: No Respiratory Distress, Lungs Clear, Normal Breath Sounds, No Accessory Muscle Use, Chest Non-Tender Cardiovascular: Normal Peripheral Pulses, Regular Rate, Rhythm, No Gallop, No Murmur, No Rub GI/Abdominal: Normal Bowel Sounds, Soft, Non-Tender, No Distention, No Abnormal Bruit, No Mass, Pelvis Stable (Female) Exam: Deferred Rectal (Female) Exam: Deferred Back Exam: Full Range of Motion. No: Muscle Spasm, Paraspinal Tenderness, Vertebral Tenderness Extremities: Normal Inspection, Normal Range of Motion, Non-Tender, No Pedal Edema, Normal Capillary Refill Neurological: Alert, Normal Mood/Affect, Normal Dorsiflexion, CN II-XII Intact, Normal Plantar Flexion, Normal Reflexes, No Motor/Sensory Deficits, Oriented x 3 Psychiatric: Normal Affect, Normal Mood Skin Exam: Warm, Dry, Intact, Normal Color, No Rash. No: Cyanosis, Ecchymosis, Erythema, Jaundice, Mottled, Pallor, Petechiae Course - Vital Signs Last Recorded V/S: Last Vital Signs Temp 97.1 F 02/01/21 06:52 Pulse 68 02/01/21 06:52 Resp 16 02/01/21 06:52 BP 131/55 L 02/01/21 06:52 Pulse Ox 94 L 02/01/21 06:52 - Radiology Interpretation Free Text/Narrative:: [facility] [place] [facility] Final Radiology Report Call: [phone] assistance Online chat: [email or web address] Name: MARYCHUY TORRES Age: 81Years F Date: 02/01/2021 SSN: -- : [id number] Study: CR LUMBAR SPINE 2 OR 3V Requesting Physician: Xuan Camacho Images: 3 Addl Studies: Provided Clinical History: Persistent pain to mid back Contrast: Contrast Medium: Contrast Amount: Contrast Method: CONFIDENTIALITY STATEMENT This report is intended only for use by the referring physician, and only in accordance with law. If you received this in error, call [phone]. Page 1 of 1 PROCEDURE INFORMATION: Exam: XR Lumbosacral Spine Exam date and time: 02/01/2021 8:36 AM Age: 81 years old Clinical indication: Low back pain; Additional info: Persistent pain to mid back TECHNIQUE: Imaging protocol: XR of the lumbosacral spine. Views: 2 or 3 views. COMPARISON: CT Hip wo Cont Rt, Hip wo Cont Rt 01/24/2021 4:57 PM FINDINGS: Bones/joints: There is diffuse demineralization/osteopenia of the regional skeleton. Compression fractures involving the inferior endplate of L3 and superior endplate of L4 of uncertain age. Mild narrowing of the L3-L4 and L5-S1 disc spaces. Soft tissues: The psoas muscle margins are intact. Organs: Distended urinary bladder IMPRESSION: 1. Compression fractures involving the inferior endplate of L3 and superior endplate of L4 of uncertain age. 2. Mild narrowing of the L3-L4 and L5-S1 disc spaces. Thank you for allowing us to participate in the care of your patient. Dictated and Authenticated by: Sp Brito MD 02/01/2021 9:17 AM Central Time ([place] & [place]) - Re-Assessments/Exams Free Text/Narrative Re-Assessment/Exam: 02/01/21 Findings of examination and imaging reviewed with patient and [id number]. Will treat acute pain with lidocaine patches. Discussed supportive cares for acute on chronic low back pain. Patient instructed to follow up with primary care provider should pain persist or worsen. Red flag signs and symptoms which would warrant reevaluation reviewed. Patient verbalized understanding and agreement with the plan of care. Departure - Departure Time of Disposition: 09:23 Disposition: Home, Self-Care 01 Condition: Good Clinical Impression: Compression fracture, Mid back pain, chronic, Narrowing of lumbar spine Back pain, acute Qualifiers: Back pain location: low back pain Back pain laterality: midline Sciatica presence: without sciatica Qualified Code(s): M54.5 - Low back pain - Discharge Information *PRESCRIPTION DRUG MONITORING PROGRAM REVIEWED*: Not Applicable *COPY OF PRESCRIPTION DRUG MONITORING REPORT IN PATIENT ELLIOT: Not Applicable Instructions: Chronic Back Pain, [id number] Forms: ED Department Discharge Additional Instructions: Rx: lidocaine patch 1.) Follow up with Julia, your primary care provider, for findings of today's examination. 2.) Should lidocaine patches help you with your pain, Julia can help you with exterminator helper ordering of this medication. 3.) Continue with Tylenol 1000mg every six hours. 4.) Alternate ice and heat to the area. 5.) Consider physical therapy for back stretching and strengthening. Sepsis Event Note (ED) - Evaluation Sepsis Screening Result: No Definite Risk - Focused Exam Vital Signs: Vital Signs Temp Pulse Resp BP Pulse Ox 02/01/21 06:52 97.1 F 68 16 131/55 L 94 L
--- NOTE | 2021-02-01 09:18 | CR ---
PROCEDURE INFORMATION: Exam: XR Lumbosacral Spine Exam date and time: 02/01/2021 8:36 AM Age: 81 years old Clinical indication: Low back pain; Additional info: Persistent pain to mid back TECHNIQUE: Imaging protocol: XR of the lumbosacral spine. Views: 2 or 3 views. COMPARISON: CT Hip wo Cont Rt, Hip wo Cont Rt 01/24/2021 4:57 PM FINDINGS: Bones/joints: There is diffuse demineralization/osteopenia of the regional skeleton. Compression fractures involving the inferior endplate of L3 and superior endplate of L4 of uncertain age. Mild narrowing of the L3-L4 and L5-S1 disc spaces. Soft tissues: The psoas muscle margins are intact. Organs: Distended urinary bladder IMPRESSION: 1. Compression fractures involving the inferior endplate of L3 and superior endplate of L4 of uncertain age. 2. Mild narrowing of the L3-L4 and L5-S1 disc spaces.
== END 2021-02-01 10:12 | disposition home or self-care (01) ==
LOC: DL.ED 06:52
DX: S32.030A Wedge compression fracture of third lumbar vertebra, initial encounter for closed fracture (principal); S32.040A Wedge compression fracture of fourth lumbar vertebra, initial encounter for closed fracture; E78.00 Pure hypercholesterolemia, unspecified; I10 Essential (primary) hypertension; Z79.82 Long term (current) use of aspirin; W18.39XA Other fall on same level, initial encounter
CPT/HCPCS: 72100; 99284; 99284-25